=== PATIENT | female | born 1945 | race Caucasian/White ===

== ENCOUNTER 2016-12-30 09:19 | Emergency (ER) | payer OTHER ==
--- NOTE | 2016-12-30 09:47 | PDOC ---
History of Present Illness - General History Source: Patient Exam Limitations: No Limitations - History of Present Illness Initial Comments: 12/30/16 10:02 The patient is a 71 year old female with significant past medical history of hypertension and pulmonary hypertension who presents today with left knee pain since this morning. The patient was shoveling snow with her when he fell onto her and she fell and twisted her left knee. She has pain with walking but no pain at rest. The patient states her knee feels unstable when she is walking. She denies any head trauma or LOC from the fall. No other injuries. She denies any other pain. <Shahla Marcial - Last Filed: 12/30/16 10:01> <Leonela Reed - Last Filed: 01/01/17 07:26> - General Stated Complaint: FALL Time Seen by Provider: 12/30/16 09:43 Past History <Shahla Marcial - Last Filed: 12/30/16 10:01> <Leonela Reed - Last Filed: 01/01/17 07:26> - Past Medical History Allergies/Adverse Reactions: Allergies Allergy/AdvReac Type Severity Reaction Status Date / Time No Known Allergies Allergy Unverified 12/30/16 10:03 Home Medications: Ambulatory Orders Amlodipine Besylate [Norvasc -] 10 mg PO DAILY 12/30/16 Propranolol HCl [Propranolol HCl ER] 120 mg PO DAILY 12/30/16 Tramadol HCl [Ultram -] 25 - 50 mg PO Q6H PRN #20 tablet MDD 4 tabs 12/30/16 Valsartan/Hydrochlorothiazide [Valsartan-Hctz 320-12.5 mg Tab] 1 tab PO DAILY Walker [Ultra-Light Rollator] 1 each ASDIR #1 each 12/30/16 Review of Systems - Review of Systems Able to Perform ROS?: Yes Comments:: 12/30/16 10:02 GENERAL/CONSTITUTIONAL: No fever or chills. No weakness. HEAD, EYES, EARS, NOSE AND THROAT: No change in vision. No ear pain or discharge. No sore throat. GENITOURINARY: No dysuria, frequency, or change in urination. MUSCULOSKELETAL: +Left knee pain. No muscle swelling or pain. No neck or back pain. SKIN: No rash NEUROLOGIC: No headache, vertigo, loss of consciousness, or change in strength/ sensation. ENDOCRINE: No increased thirst. No abnormal weight change. HEMATOLOGIC/LYMPHATIC: No anemia, easy bleeding, or history of blood clots. ALLERGIC/IMMUNOLOGIC: No hives or skin allergy. <Shahla Marcial - Last Filed: 12/30/16 10:01> *Physical Exam - Vital Signs Last Vital Signs Temp Pulse Resp BP Pulse Ox 97.6 F 72 18 122/80 100 12/30/16 09:56 12/30/16 09:56 12/30/16 09:56 12/30/16 09:56 12/30/16 09:56 <Shahla Marcial - Last Filed: 12/30/16 10:01> - Physical Exam Comments: GENERAL: Awake, alert, and fully oriented, in no acute distress HEAD: No signs of trauma EYES: PERRLA, EOMI, sclera anicteric, conjunctiva clear ENT: Auricles normal inspection, hearing grossly normal, nares patent, oropharynx clear without exudates. Moist mucosa EXTREMITIES: L knee with MCL and LCL laxity. No tenderness to palpation. Remainder of extremities with normal range of motion, no edema. No clubbing or cyanosis. No cords, erythema, or tenderness NEUROLOGICAL: Cranial nerves II through XII grossly intact. Normal speech. Motor and sensation intact. Gait not initially tested due to nature of complaint. SKIN: Warm, Dry, normal turgor, no rashes or lesions noted. <Leonela Reed - Last Filed: 01/01/17 07:26> Medical Decision Making - Medical Decision Making 12/30/16 10:56 Ortho paged. 12/30/16 11:49 XR results d/w patient and family at bedside. Awaiting return call from ortho. 12/30/16 12:26 D/w Dr. Richardson. Patient will require surgery, but at this time, will immobilize her and keep her non-weightbearing. Surgery will be delayed to allow for swelling and recovery. I will have PT evaluate her for how she can get around at home. 12/30/16 13:41 Pt has returned from PT, will use walker at home. I will give rx. F/u discussed with case management in terms of arranging transportation. Will see Dr. Castellano in office tomorrow. Stable for AL home. <Leonela Reed - Last Filed: 01/01/17 07:26> *DC/Admit/Observation/Transfer - Attestations Scribe Attestion: 12/30/16 10:02 Documentation prepared by Shahla Marcial, acting as medical csr for Leonela Reed MD. <Shahla Marcial - Last Filed: 12/30/16 10:01> - Discharge Dispostion Admit: No <Leonela Reed - Last Filed: 01/01/17 07:26> Diagnosis at time of Disposition: Tibial plateau fracture, left Qualifiers: Encounter type: initial encounter Fracture type: closed Qualified Code(s): S82.142A - Displaced bicondylar fracture of left tibia, initial encounter for closed fracture - Discharge Dispostion Disposition: HOME Condition at time of disposition: Stable - Prescriptions Prescriptions: Walker [Ultra-Light Rollator] 1 each MC ASDIR #1 each Tramadol HCl [Ultram -] 25 - 50 mg PO Q6H PRN #20 tablet MDD 4 tabs PRN Reason: Severe Pain - Referrals Referrals: Jonathan Castellano MD [Staff Physician] - Anne Go MD [Primary Care Provider] - - Patient Instructions Printed Discharge Instructions: DI for Tibial Plateau Fracture
[2016-12-30 10:02] VITALS: TEMP 97.6; BMI 24.0
[2016-12-30] MEDS ORDERED: IBUPROFEN 400 MG TABLET (FP) PO ONE ×2 (12:44→12:47)
[2016-12-30 14:33] VITALS: BP 124/70; PULSE 74
== END 2016-12-30 14:33 | disposition home or self-care (01) ==
LOC: JER 09:19
DX: S82.142A Displaced bicondylar fracture of left tibia, initial encounter for closed fracture (principal); W00.0XXA Fall on same level due to ice and snow, initial encounter; Y93.H1 Activity, digging, shoveling and raking; Y92.009 Unspecified place in unspecified non-institutional (private) residence as the place of occurrence of the external cause
CPT/HCPCS: 73562-TC-LT; 99282-25

== ENCOUNTER 2017-01-12 05:52 | Day surgery (SDC) | payer OTHER ==
[2017-01-12] MEDS ORDERED: MIDAZOLAM HCL 2 MG/2 ML SINGLE DOSE VIAL ONE (06:45)
[2017-01-12] MEDS ORDERED: DEXAMETHASONE SOD PHOSPHATE/PF 10 MG/ML SDV ONE (06:45)
[2017-01-12] MEDS ORDERED: ROPIVACAINE HCL 0.5% 30ML VIAL ONE ×2 (06:45→07:15)
[2017-01-12 06:52] VITALS: BMI 23.1
[2017-01-12] MEDS ORDERED: BUPIVACAINE HCL/PF 0.5% (5MG/ML) 10 ML VIAL ONE (13:10)
[2017-01-12] MEDS ORDERED: ONDANSETRON 4 MG/2 ML VIAL ONE (13:29)
[2017-01-12] MEDS ORDERED: ceFAZolin SODIUM 1 GM VIAL ONE (13:29)
[2017-01-12] MEDS ORDERED: PROPOFOL 20 ML ONE ×2 (13:33→15:28)
[2017-01-12] MEDS ORDERED: PROMETHAZINE HCL 25 MG/1 ML VIAL IVPUSH PRN (15:16)
[2017-01-12] MEDS ORDERED: ONDANSETRON 4 MG/2 ML VIAL IVPUSH PRN ×2 (15:16)
[2017-01-12] MEDS ORDERED: PROMETHAZINE HCL 25 MG/1 ML VIAL IVPB PRN (15:16)
[2017-01-12] MEDS ORDERED: LACTATED RINGERS SOLUTION 1,000 ML IV SCH (15:30)
[2017-01-12] MEDS ORDERED: HYDROmorphone *PCA* 10MG/50ML DISP.SYRIN PCA SCH (15:30)
[2017-01-12] MEDS ORDERED: EPINEPHrine 1:1,000 1 MG/1 ML - 30ML VIAL (INJECTION) ONE (15:39)
[2017-01-12] MEDS ORDERED: ePHEDrine SULFATE 50 MG/1 ML AMPULE ONE (15:52)
[2017-01-12 17:25] VITALS: TEMP 98
[2017-01-12 18:18] VITALS: PULSE 68
[2017-01-12 18:43] VITALS: BP 115/60
--- NOTE | 2017-01-13 11:14 | OP ---
DATE OF OPERATION: 01/12/2017 PREOPERATIVE DIAGNOSIS: Left knee lateral tibial plateau fracture. POSTOPERATIVE DIAGNOSIS: Left knee lateral tibial plateau fracture. PROCEDURE: Open reduction and internal fixation of left tibial plateau. SURGEON: Jonathan Castellano MD DIRECTOR OF CAMPUS RECREATION: Chapis Mccloud, physician liaison inspection laboratory assistant, whose skilled assistance was necessary for the safe and timely performance of this procedure. Ms. Mccloud was able to help with patient positioning, assist in retraction, fracture reduction, as well as insertion of orthopedic hardware. TOURNIQUET TIME: Two hours. POSTOPERATIVE CONDITION: Stable. BLOOD LOSS: 50 mL. IMPLANTS: Gene proximal tibial locking plate with associated locking and nonlocking screws. INDICATIONS: This is a pleasant, 71-year-old female who suffered a trip and fall, resulting in injury to her knee. She was seen in the office where plain film radiographs were reviewed, demonstrating a depressed lateral tibial plateau fracture. A CT scan was obtained subsequently, as well, demonstrating the same thing, along with significant splits. There was moderate comminution to the joint surface, as well. The treatment options were discussed, including nonoperative management with bracing. This could also result in permanent depression of the joint surface and potentially valgus instability, as well as post-traumatic arthritis, and discomfort. We discussed the option of operative care, including open reduction and internal fixation. This would be to try to restore the joint surface to as close to normal as possible. We reviewed that it is never possible to make it completely smooth like it started out. We reviewed the risks of surgery, including bleeding, infection, neurovascular injury, need for further surgery, including possibly knee replacement surgery should the patient have an unsatisfactory result, postoperative pain and stiffness, nonunion, and malunion. We discussed also the possible onset of arthritis following surgery. We reviewed medical risks, such as heart attack, stroke, DVT , PE, and . We would reduce these with perioperative antibiotic prophylaxis. We discussed the use of perioperative DVT prophylaxis. I addressed all of the patient's questions and the family voiced understanding. She elected to proceed and consent was signed. PROCEDURE: The patient was brought to the operating room, following administration of a regional block in the preoperative holding area. The left lower extremity was then prepped and draped in the usual sterile fashion, following the administration of spinal anesthesia, as well. The patient was given a preoperative dose of antibiotics and the usual timeout procedure was performed. At this point, an incision was planned out over the proximal-lateral aspect of the tibia. It was curved posteriorly in the more proximal portion to gain access to the proximal fracture fragment. The limb was now exsanguinated and the tourniquet was inflated to 250 mmHg. The incision was now carried down through skin to the subcutaneous tissue. Blunt dissection was used to expose the facia over the anterior compartment. The fascia was now split in line with its fibers over the anterior compartment. A periosteal elevator was now slid along the lateral aspect of the tibia to expose the cortex. The fracture did have some callus on it. This was debrided using a combination of a Herrick elevator as well as a curette. The fracture was noted to extend all the way up to the lateral border of the patellar tendon. Utilizing the large anterolateral fracture fragment, this was now elevated in a lateral direction to gain access to the interior of the tibia. Here, the large main fragment of the joint surface which was depressed was identified. Utilizing a tamp, it was tamped up back to the more anatomic position. Some smaller fracture fragments had to be removed which were not large enough to be fixed. The cancellous bone graft was now used and this was tamped up under the fracture fragments and used to support the joint surface in a reduced position. The fragment was now reduced back into place and fluoroscopy was used to examine the fracture reduction in 2 planes. Both views demonstrated satisfactory reduction of the joint surface. The plate was now applied to the lateral aspect of the tibia. It was held in place using K-wires. Initially, in the metaphyseal region, a 4.0 cancellous screw was first drilled, measured, and then inserted in order to provide compression across the fracture site. Upon inserting this screw, good compression was achieved across the fracture site as visualized anteriorly. Plate placement and fracture reduction were now confirmed fluoroscopically and were satisfactory. The plate was now fixed distally using a 3.5 cortical screw inserted in standard fashion. Attention was now turned proximally. Here, the rafter screws were drilled using the locking guide and then inserted in standard fashion. An additional metaphyseal locking screw was inserted, as well. The kickstand and other distal nonlocking screw were inserted to finish the fixation process. At this point, hardware placement was verified both visually and fluoroscopically, as well as the fracture reduction, and both were satisfactory. Given that there was still a void in the bone, it was decided to use HydroSet calcium paste to augment the bone grafting. This was injected through a comminuted portion anteroinferiorly. On filling the defect, it was noted that some of the cement started to escape into the joint. Cement was now allowed to harden. The wound at this point was copiously irrigated. The fascia was approximated loosely using 0 Vicryl. The subcutaneous tissue was approximated using 2-0 Vicryl. The skin was then closed using a running 4-0 nylon. The tourniquet was let down. At this point, the knee was passed over the side of the table and flexed to 90 degrees. A standard anterolateral arthroscopic portal was now established using an 11-blade. The arthroscope was then passed into the knee. A medial portal was now established, as well. Utilizing a 4.5 shaver, the excess bone graft which had been in the knee was now debrided. Inspection of the lateral compartment demonstrated that the joint surface was well approximated. The meniscus was seen to be complexly torn throughout its body and posterior horn which appeared chronic in nature, given the frayed and bulbous shape of the meniscus. This was gently debrided, as well. The excess fluid was now withdrawn from the knee. The portal sites were sutured using 4-0 nylon, as well. The patient was placed into sterile dressings. She was placed into a knee immobilizer. She was transferred to the recovery room in stable condition. Morris RIVERA/[id number] MTDD
== END 2017-01-12 18:35 | disposition home or self-care (01) ==
LOC: FASU 05:52
PROVIDERS: ATTEND Orthopaedic Surgery Sports Medicine
PROC: 0QSH04Z Reposition Left Tibia with Internal Fixation Device, Open Approach (ICD-10-PCS; principal; 2017-01-12 13:46)
DX: S82.122A Displaced fracture of lateral condyle of left tibia, initial encounter for closed fracture (principal); X58.XXXA Exposure to other specified factors, initial encounter; Y93.9 Activity, unspecified; Y92.9 Unspecified place or not applicable
CPT/HCPCS: 73590-TC-LT; 94760

== ENCOUNTER 2018-11-03 12:38 | Emergency (ER) | payer OTHER ==
[2018-11-03 13:11] VITALS: BP 136/62; PULSE 67; TEMP 98.3; BMI 24.7
[2018-11-03] MEDS ORDERED: AMPICILLIN NA/SULBACTAM NA 1.5 GM VIAL ONE (15:27)
--- NOTE | 2018-11-03 16:01 | CONSULT ---
Consult Consult Specialty:: Hand and Microsurgery - Alcohol/Substance Use Hx Alcohol Use: No - Smoking History Smoking history: Never smoked Have you smoked in the past 12 months: No Home Medications - Allergies Allergies/Adverse Reactions: Allergies Allergy/AdvReac Type Severity Reaction Status Date / Time No Known Allergies Allergy Unverified 01/12/17 06:58 - Home Medications Home Medications: Ambulatory Orders Amlodipine Besylate [Norvasc -] 10 mg PO DAILY 12/30/16 Propranolol HCl [Propranolol HCl ER] 120 mg PO DAILY 12/30/16 Valsartan/Hydrochlorothiazide [Valsartan-Hctz 320-12.5 mg Tab] 1 tab PO DAILY traMADol HCL [Ultram -] 25 - 50 mg PO Q6H PRN #20 tablet MDD 4 tabs 12/30/16 Aspirin [Ecotrin] 81 mg PO BID 01/08/17 Amoxicillin/Potassium Clav [Augmentin 875-125 Tablet] 1 each PO BID 7 Days #14 tablet 11/03/18 Physical Exam Vital Signs: Vital Signs Temperature 98.3 F 11/03/18 13:08 Pulse Rate 67 11/03/18 13:08 Respiratory Rate 16 11/03/18 13:08 Blood Pressure 136/62 11/03/18 13:08 O2 Sat by Pulse Oximetry (%) 98 11/03/18 13:08 Problem List - Problems (1) Dog bite of left hand without complication Assessment/Plan: LEFT HAND DORSAL BITE UNASYN 1.5 OR 3GRAMS IV ORAL AUGMENTIN x7 DAYS F/U IN WOUND CARE IN 2 WEEKS Code(s): S61.452A - OPEN BITE OF LEFT HAND, INITIAL ENCOUNTER; W54.0XXA - BITTEN BY DOG, INITIAL ENCOUNTER Qualifiers: Encounter type: initial encounter Qualified Code(s): S61.452A - Open bite of left hand, initial encounter; W54.0XXA - Bitten by dog, initial encounter (2) Laceration of left hand without foreign body Code(s): S61.412A - LACERATION WITHOUT FOREIGN BODY OF LEFT HAND, INIT ENCNTR Qualifiers: Encounter type: initial encounter Qualified Code(s): S61.412A - Laceration without foreign body of left hand, initial encounter (3) Tibial plateau fracture, left Code(s): S82.142A - DISPLACED BICONDYLAR FRACTURE OF LEFT TIBIA, INIT Qualifiers: Encounter type: initial encounter Fracture type: closed Qualified Code(s) : S82.142A - Displaced bicondylar fracture of left tibia, initial encounter for closed fracture
--- NOTE | 2018-11-03 16:04 | PDOC ---
History of Present Illness - General Chief Complaint: Bite Stated Complaint: INJURY/BITE,LT HAND Time Seen by Provider: 11/03/18 14:20 History Source: Patient Exam Limitations: Clinical Condition - History of Present Illness Initial Comments: 11/03/18 16:07 Patient with h/o HTN present for evaluation s/p being bitten by daughter's labrador dog when trying to close the fence gate and dog bit her . Patient does not recall last tetanus vaccine. Patient report skin avulsion to back of left hand from the bite. Patient report able to move fingers and hand . Patient denies any neuro deficit to hand or restricted hand movement. Patient report dog is usually not aggresive and does not know why dog bit her hand. Report dog is fully immunized Timing/Duration: 1-3 hours Past History - Past Medical History Allergies/Adverse Reactions: Allergies Allergy/AdvReac Type Severity Reaction Status Date / Time No Known Allergies Allergy Unverified 01/12/17 06:58 Home Medications: Ambulatory Orders Amlodipine Besylate [Norvasc -] 10 mg PO DAILY 12/30/16 Propranolol HCl [Propranolol HCl ER] 120 mg PO DAILY 12/30/16 Valsartan/Hydrochlorothiazide [Valsartan-Hctz 320-12.5 mg Tab] 1 tab PO DAILY traMADol HCL [Ultram -] 25 - 50 mg PO Q6H PRN #20 tablet MDD 4 tabs 12/30/16 Aspirin [Ecotrin] 81 mg PO BID 01/08/17 Amoxicillin/Potassium Clav [Augmentin 875-125 Tablet] 1 each PO BID 7 Days #14 tablet 11/03/18 Naproxen 500 mg PO BID PRN #20 tablet 11/03/18 Anemia: No Asthma: No Cancer: Yes Cardiac Disorders: Yes (CAD) CVA: No COPD: No CHF: No Dementia: No Diabetes: No GI Disorders: No Disorders: No HTN: Yes (PULMONARY HTN) Hypercholesterolemia: Yes Liver Disease: No Seizures: No Thyroid Disease: No - Surgical History Abdominal Surgery: No Appendectomy: No Cardiac Surgery: No Cholecystectomy: No Lung Surgery: No Neurologic Surgery: No Orthopedic Surgery: No - Immunization History Immunization Up to Date: No - Suicide/Smoking/Psychosocial Hx Smoking History: Never smoked Have you smoked in the past 12 months: No Information on smoking cessation initiated: No Hx Alcohol Use: No Drug/Substance Use Hx: No Substance Use Type: None Hx Substance Use Treatment: No Review of Systems - Review of Systems Able to Perform ROS?: Yes Is the patient limited Romansh proficient: No Constitutional: No: Fever, Weakness Respiratory: No: Symptoms reported Cardiac (ROS): No: Symptoms Reported ABD/GI: No: Symptoms Reported Musculoskeletal: Yes: See HPI, Muscle Pain (pain to back of left hand). No: Muscle Weakness Integumentary: Yes: Other (complete skin avulsion to back of left hand) Neurological: No: Numbness, Paresthesia, Tingling, Weakness All Other Systems: Reviewed and Negative *Physical Exam - Vital Signs Last Vital Signs Temp Pulse Resp BP Pulse Ox 98.3 F 67 16 136/62 98 11/03/18 13:08 11/03/18 13:08 11/03/18 13:08 11/03/18 13:08 11/03/18 13:08 - Physical Exam Comments: 11/03/18 16:14 GENERAL: Well developed, well nourished. Awake and alert. No acute distress. CARDIOVASCULAR: Regular rate and rhythm. No murmurs, rubs, or gallops. PULMONARY: No evidence of respiratory distress. Lungs clear to auscultation bilaterally. No wheezing, rales or rhonchi. ABDOMINAL: Soft. Non-tender. Non-distended. No rebound or guarding. No organomegaly. Normoactive bowel sounds MUSCULOSKELETAL : Moderate tenderness to dorsum of left hand with complete 5 centimeters skin evulsion laceration to dorsal of left hand. Free range of motion of left hand or fingers. 5 out of 5 muscle strength to fingers of left hand. SKIN: 5 cm complete skin avulsion laceration in a stellate fashion to dorsum of left hand with exposed subcutaneous tissues. Minimal bleeding to laceration site. NEUROLOGICAL: Alert, awake, appropriate. No motor deficits in the lower extremities. PSYCHIATRIC: Cooperative. Good eye contact. Appropriate mood and affect. 11/03/18 16:19 General Appearance: Yes: Nourished, Appropriately Dressed. No: Apparent Distress Moderate Sedation - Procedure Monitoring Vital Signs: Procedure Monitoring Vital Signs Temperature 98.3 F 11/03/18 13:08 Pulse Rate 67 11/03/18 13:08 Respiratory Rate 16 11/03/18 13:08 Blood Pressure 136/62 11/03/18 13:08 O2 Sat by Pulse Oximetry (%) 98 11/03/18 13:08 ED Treatment Course - RADIOLOGY Radiology Studies Ordered: Category Date Time Status HAND- LEFT [RAD] Stat Radiology 11/03/18 15:11 Taken Medical Decision Making - Medical Decision Making 11/03/18 16:17 Patient with h/o HTN present for evaluation s/p being bitten by daughter's labrador dog when trying to close the fence gate and dog bit her . Patient does not recall last tetanus vaccine. Patient report skin avulsion to back of left hand from the bite. Patient report able to move fingers and hand. Exam significant for 5 cm complete skin avulsion laceration in a stellate fashion to dorsum of left hand with exposed subcutaneous tissues. Minimal bleeding to laceration site. Moderate tenderness to dorsum of left hand to dorsal of left hand. Free range of motion of left hand or fingers 11/03/18 16:18 Wound copiously irrigated with normal saline and 10 mL syringe. Wound cleaned with bacitracin. Consult place with hand surgeon Dr. Chavez who came in to see patient and closed wound with suture. Patient to follow-up in 2 weeks in wound care clinic as per hand surgeon for follow-up. X-ray of left hand shows no foreign body to laceration site. Patient given Unasyn IV antibiotics 1.5 g as instructed by hand surgeon. Patient be discharged home on a week dose of Augmentin antibiotics with follow-up in 2 weeks. tdap vaccine could not be ordered due to technical problem with computer system. Spoke to pharmacist who instruct to give vaccine by verbal order from me to nurse and document it. Verbal order given to nurse to give Boostrix 0.5 mg IM. 11/03/18 16:42 *DC/Admit/Observation/Transfer Diagnosis at time of Disposition: Encounter for immunization Dog bite of left hand without complication Qualifiers: Encounter type: initial encounter Qualified Code(s): S61.452A - Open bite of left hand, initial encounter Laceration of left hand without foreign body Qualifiers: Encounter type: initial encounter Qualified Code(s): S61.412A - Laceration without foreign body of left hand, initial encounter - Discharge Dispostion Disposition: HOME Condition at time of disposition: Improved Decision to Admit order: No - Prescriptions Prescriptions: Amoxicillin/Potassium Clav [Augmentin 875-125 Tablet] 1 each PO BID 7 Days #14 tablet Naproxen 500 mg PO BID PRN #20 tablet PRN Reason: pain - Referrals Referrals: Theo Chavez MD [Staff Physician] - - Patient Instructions Printed Discharge Instructions: How to Care for a Domestic Animal Bite, DI for Animal Bites, DI for Dog Bite Additional Instructions: Take antibiotics as prescribed and completed. Take Motrin as needed for pain. Follow-up with hand surgeon in 2 weeks as discussed for reassessment. Call Dr. Chavez office to make follow-up appointment in 2 weeks - Post Discharge Activity
[2018-11-03] MEDS ORDERED: DIPHTH,PERTUSS(ACELL),TET 0.5 ML DISP.SYRIN IM ONE (16:13)
[2018-11-03] MEDS: AMPICILLIN NA/SULBACTAM NA 1.5 GM in SODIUM CHLORIDE 100 ML IVPB ONE ×2 (16:17→16:21)
--- NOTE | 2018-11-03 17:08 | PROC ---
Incision and Drainage Indication/Location: dog bite left hand dorsal stellate lacertion Risks and Benefits Explained: Yes Consent on Chart: Yes Betadine cleansed: Yes Anesthesia: 1% Lidocaine Irrigated with Normal Saline: Yes Iodinated Packin in Sterile Dressing Applied: Yes - Remarks Remarks: Approximation of left hand dorsal stellate laceration. 4-0 nylon, around the peripheray Xeroform and gauze applied with coban
== END 2018-11-03 16:49 | disposition home or self-care (01) ==
LOC: JERFT 12:38
PROC: 0JQK0ZZ Repair Left Hand Subcutaneous Tissue and Fascia, Open Approach (ICD-10-PCS; principal; 2018-11-03)
PROC: 3E0234Z Introduction of Serum, Toxoid and Vaccine into Muscle, Percutaneous Approach (ICD-10-PCS; 2018-11-03)
PROC: 3E03329 Introduction of Other Anti-infective into Peripheral Vein, Percutaneous Approach (ICD-10-PCS; 2018-11-03)
DX: S61.452A Open bite of left hand, initial encounter (principal); S61.412A Laceration without foreign body of left hand, initial encounter; W54.0XXA Bitten by dog, initial encounter; Y93.89 Activity, other specified; Y92.018 Other place in single-family (private) house as the place of occurrence of the external cause; Y99.8 Other external cause status
CPT/HCPCS: 73130-TC-LT-FY; 99281-25

== ENCOUNTER 2023-04-29 11:00 | Emergency (ER) | payer OTHER, MEDICARE ==
[2023-04-29 11:24] VITALS: BP 160/97; PULSE 83; RESP 18; TEMP 97.9; BMI 28.0
[2023-04-29] MEDS ORDERED: ACETAMINOPHEN 325 MG TABLET (FP) PO ONE (11:25)
[2023-04-29] MEDS ORDERED: LIDOCAINE 5% TOPICAL PATCH TP ONE (11:25)
[2023-04-29] MEDS ORDERED: ACETAMINOPHEN 325 MG TABLET (FP) ONE (11:30)
[2023-04-29] MEDS ORDERED: LIDOCAINE 5% TOPICAL PATCH ONE (11:31)
== END 2023-04-29 13:30 | disposition home or self-care (01) ==
LOC: FER 11:00
DX: M54.50 Low back pain, unspecified (principal); W01.0XXA Fall on same level from slipping, tripping and stumbling without subsequent striking against object, initial encounter; X50.1XXA Overexertion from prolonged static or awkward postures, initial encounter; Y93.H2 Activity, gardening and landscaping
CPT/HCPCS: 72131-TC; 99284-25

== ENCOUNTER 2023-12-27 09:51 | Inpatient (IN) | payer OTHER, MEDICARE ==
[2023-12-27] MEDS ORDERED: ACETAMINOPHEN 500 MG TABLET (FP) ONE (12:26)
[2023-12-27] MEDS: ACETAMINOPHEN 500 MG TABLET (FP) PO ONE (13:04)
[2023-12-27 13:24] LABS: BASO % 0.3 % (0-2.0); EOS % 0.4 % (0-4.5); HEMATOCRIT 36.1 % (32.4-45.2); HEMOGLOBIN 12.6 GM/dL (10.7-15.3); LYMPH % 8.1 % (8-40); MCH 31.4 pg (25.7-33.7); MCHC 34.8 g/dl (32.0-36.0); MEAN CELL VOLUME 90.2 fl (80-96); MEAN PLT VOLUME 8.8 fl (7.5-11.1); MONO % 4.7 % (3.8-10.2); NEUT % 86.5 % (42.8-82.8); PLATELET COUNT 228 10^3/uL (134-434); RDW 13.9 % (11.6-15.6); WHITE BLOOD COUNT 10.9 K/mm3 (4.0-10.0)
[2023-12-27 13:37] LABS: INR 1.03 (0.83-1.09)
[2023-12-27 13:39] LABS: ACTIVATED PTT 24.9 SECONDS (25.2-36.5)
[2023-12-27 13:47] LABS: POTASSIUM 3.1 mmol/L (3.5-5.1)
[2023-12-27 13:49] LABS: CALCIUM 9.1 mg/dL (8.5-10.1)
[2023-12-27 13:50] LABS: ALBUMIN 3.2 g/dl (3.4-5.0); BLOOD UREA NITROGEN 21.2 mg/dL (7-18)
[2023-12-27 13:53] LABS: CREATININE 1.1 mg/dL (0.55-1.3)
[2023-12-27 13:55] LABS: BILIRUBIN,TOTAL 1.2 mg/dL (0.2-1); TOT PROT 6.1 g/dl (6.4-8.2)
[2023-12-27] MEDS ORDERED: POTASSIUM CHLORIDE ORAL LIQUID 20 MEQ/15 ML ONE (14:06)
[2023-12-27] MEDS: POTASSIUM CHLORIDE ORAL LIQUID 20 MEQ/15 ML PO ONE (14:10)
[2023-12-27] MEDS ORDERED: ASPIRIN 81 MG CHEWABLE TABLETS ONE (15:28)
[2023-12-27] MEDS: ASPIRIN 81 MG CHEWABLE TABLETS PO ONE (15:30)
[2023-12-27 19:22] LABS: EPI CELLS 11 /uL (0-25.1); HYALINE CASTS 0 /uL (0-3.1); PH,URINE 5.5 (5.0-8.0); URINE APPEARANCE Error; URINE BILIRUBIN NEGATIVE (NEGATIVE); URINE COLOR DK YELLOW; URINE GLUCOSE (UA) NEGATIVE (NEGATIVE); URINE KETONE TRACE (NEGATIVE); URINE LEUK ESTERASE 2+ (NEGATIVE); URINE NITRITE POSITIVE (NEGATIVE); URINE PROTEIN TRACE (NEGATIVE); URINE RBC 16 /uL (0-23.9); URINE WBC 671 /uL (0-25.8)
[2023-12-27] MEDS ORDERED: traMADol HCL 50 MG TABLET PO PRN (19:37)
[2023-12-27] MEDS ORDERED: PATIENT'S OWN MEDICATION (NON-FORMULARY) (Pravastatin Sodium 40 MG Tablet) PO SCH (19:45)
[2023-12-27 20:34] VITALS: BMI 21.2
[2023-12-27] MEDS: SODIUM CHLORIDE 500 ML IV STA (21:15)
[2023-12-27] MEDS: POLYETHYLENE GLYCOL (HEALTHYLAX) 3350 17 GM PACKET PO SCH (21:46)
[2023-12-27] MEDS: ATORVASTATIN CA 10 MG TABLET (FP) PO SCH (21:46)
[2023-12-27] MEDS: SODIUM CHLORIDE 1,000 ML IV SCH (21:47)
[2023-12-28] MEDS: CEFTRIAXONE 1 GM in DEXTROSE 5%-WATER - 50 ML IVPB ONE (01:56)
[2023-12-28 08:07] LABS: HEMATOCRIT 34.5 % (32.4-45.2); HEMOGLOBIN 11.7 GM/dL (10.7-15.3); MCHC 33.8 g/dl (32.0-36.0); MEAN CELL VOLUME 91.6 fl (80-96); MEAN PLT VOLUME 8.9 fl (7.5-11.1); PLATELET COUNT 201 10^3/uL (134-434); RBC 3.76 M/mm3 (3.60-5.2); WHITE BLOOD COUNT 8.8 K/mm3 (4.0-10.0)
[2023-12-28 08:32] LABS: POTASSIUM 3.8 mmol/L (3.5-5.1)
[2023-12-28 08:38] LABS: CALCIUM 8.7 mg/dL (8.5-10.1)
[2023-12-28 08:39] LABS: BLOOD UREA NITROGEN 23.4 mg/dL (7-18); MAGNESIUM 1.9 mg/dL (1.8-2.4)
[2023-12-28 08:41] LABS: CREATININE 0.9 mg/dL (0.55-1.3)
[2023-12-28 08:42] LABS: PHOSPHOROUS 2.5 mg/dL (2.5-4.9)
[2023-12-28 08:43] LABS: BILIRUBIN,TOTAL 0.8 mg/dL (0.2-1); TOT PROT 5.9 g/dl (6.4-8.2)
[2023-12-28] MEDS: ASPIRIN COATED 81 MG TABLET.EC PO SCH (09:37)
[2023-12-28] MEDS: SODIUM CHLORIDE 500 ML IV STA (09:37)
[2023-12-28] MEDS ORDERED: CEFTRIAXONE 1 GM in DEXTROSE 5%-WATER - 50 ML IVPB SCH (22:00)
[2023-12-28] MEDS: SODIUM CHLORIDE 1,000 ML IV SCH (22:28)
[2023-12-29 07:39] LABS: HEMATOCRIT 34.6 % (32.4-45.2); HEMOGLOBIN 11.7 GM/dL (10.7-15.3); MCH 30.5 pg (25.7-33.7); MCHC 33.7 g/dl (32.0-36.0); MEAN CELL VOLUME 90.6 fl (80-96); PLATELET COUNT 192 10^3/uL (134-434); RBC 3.82 M/mm3 (3.60-5.2); RDW 13.7 % (11.6-15.6)
[2023-12-29 07:48] LABS: CHLORIDE 106 mmol/L (98-107); SODIUM 140 mmol/L (136-145)
[2023-12-29 08:13] LABS: CALCIUM 8.7 mg/dL (8.5-10.1)
[2023-12-29 08:14] LABS: ALBUMIN 2.9 g/dl (3.4-5.0); BLOOD UREA NITROGEN 13.2 mg/dL (7-18); CO2 26 mmol/L (21-32); GLUCOSE,RANDOM 141 mg/dL (74-106); MAGNESIUM 1.6 mg/dL (1.8-2.4)
[2023-12-29 08:16] LABS: CREATININE 0.6 mg/dL (0.55-1.3); PHOSPHOROUS 2.3 mg/dL (2.5-4.9); SGOT/AST 28 U/L (15-37)
[2023-12-29 08:18] LABS: SGPT/ALT 24 U/L (13-61)
[2023-12-29 08:19] LABS: TOT PROT 5.6 g/dl (6.4-8.2)
[2023-12-29 08:20] LABS: ALK PHOS 245 U/L (45-117)
[2023-12-29 08:27] LABS: ANION GAP 8 mmol/L (4-13); POTASSIUM 2.9 mmol/L (3.5-5.1)
[2023-12-29] MEDS: CEFTRIAXONE 1 GM in DEXTROSE 5%-WATER - 50 ML IVPB SCH (09:22)
[2023-12-29] MEDS: ENOXAPARIN NA (PORCINE) 40 MG/0.4 ML DISP.SYRIN SQ SCH (09:22)
[2023-12-29] MEDS: POTASSIUM CHLORIDE ORAL LIQUID 20 MEQ/15 ML PO ONE (12:56)
[2023-12-29] MEDS: MAGNESIUM SULFATE IN WATER 2 GM/50 ML IVPB IVPB ONE (12:57)
[2023-12-29] MEDS: POTASSIUM PHOSPHATE 30 MM in SODIUM CHLORIDE 500 ML IVPB ONE (15:35)
[2023-12-29] MEDS ORDERED: PIPERACILLIN/TAZOB 3.375 GM 3.375 GM in DEXTROSE 5%-WATER - 50 ML IVPB SCH (18:00)
[2023-12-29] MEDS: PIPERACILLIN/TAZOB 3.375 GM 3.375 GM in DEXTROSE 5%-WATER - 50 ML IVPB SCH (18:23)
[2023-12-29] MEDS: ACETAMINOPHEN 325 MG TABLET (FP) PO PRN (18:42)
[2023-12-30 07:21] LABS: HEMATOCRIT 31.9 % (32.4-45.2); HEMOGLOBIN 11.1 GM/dL (10.7-15.3); MCH 31.4 pg (25.7-33.7); MEAN CELL VOLUME 89.8 fl (80-96); PLATELET COUNT 195 10^3/uL (134-434); RBC 3.55 M/mm3 (3.60-5.2)
[2023-12-30 07:40] LABS: POTASSIUM 3.8 mmol/L (3.5-5.1)
[2023-12-30 07:45] LABS: ALBUMIN 2.6 g/dl (3.4-5.0); BLOOD UREA NITROGEN 10.7 mg/dL (7-18); CALCIUM 8.1 mg/dL (8.5-10.1)
[2023-12-30 07:47] LABS: CREATININE 0.7 mg/dL (0.55-1.3); PHOSPHOROUS 3.5 mg/dL (2.5-4.9)
[2023-12-30 07:50] LABS: BILIRUBIN,TOTAL 0.8 mg/dL (0.2-1); TOT PROT 5.3 g/dl (6.4-8.2)
[2023-12-30] MEDS: PIPERACILLIN/TAZOB 3.375 GM 3.375 GM in DEXTROSE 5%-WATER - 50 ML IVPB SCH ×4 (16:25→22:33)
[2023-12-30] MEDS: LACTULOSE 20 GM/30 ML UDC (FOR ORAL USE ONLY) PO ONE ×2 (17:14)
[2023-12-31 07:12] LABS: HEMATOCRIT 36.1 % (32.4-45.2); MCH 30.2 pg (25.7-33.7); MCHC 33.1 g/dl (32.0-36.0); MEAN CELL VOLUME 91.2 fl (80-96); MEAN PLT VOLUME 9.2 fl (7.5-11.1); PLATELET COUNT 220 10^3/uL (134-434); RBC 3.97 M/mm3 (3.60-5.2); WHITE BLOOD COUNT 8.3 K/mm3 (4.0-10.0)
[2023-12-31 07:26] LABS: POTASSIUM 3.5 mmol/L (3.5-5.1)
[2023-12-31 07:29] LABS: CALCIUM 8.6 mg/dL (8.5-10.1)
[2023-12-31 07:30] LABS: ALBUMIN 2.8 g/dl (3.4-5.0); BLOOD UREA NITROGEN 12.2 mg/dL (7-18)
[2023-12-31 07:34] LABS: CREATININE 0.7 mg/dL (0.55-1.3); PHOSPHOROUS 2.7 mg/dL (2.5-4.9)
[2023-12-31 07:35] LABS: BILIRUBIN,TOTAL 0.9 mg/dL (0.2-1); TOT PROT 5.8 g/dl (6.4-8.2)
[2023-12-31] MEDS ORDERED: HEPARIN NA (PORCINE) 5,000 UNITS/ML 1ML VIAL IVPUSH PRN (18:23)
[2023-12-31] MEDS: BISACODYL 5 MG TABLET.DR (FP) PO ONE (20:16)
[2023-12-31] MEDS: SODIUM CHLORIDE 1,000 ML IV SCH (20:33)
[2023-12-31] MEDS: HEPARIN - 25,000 UNIT in SODIUM CHLORIDE 495 ML IV SCH (22:03)
[2023-12-31] MEDS: HEPARIN NA (PORCINE) 5,000 UNITS/ML 1ML VIAL IVPUSH ONE (22:03)
[2024-01-01 08:03] LABS: HEMATOCRIT 34.1 % (32.4-45.2); HEMOGLOBIN 11.8 GM/dL (10.7-15.3); MCHC 34.7 g/dl (32.0-36.0); MEAN CELL VOLUME 89.5 fl (80-96); MEAN PLT VOLUME 9.1 fl (7.5-11.1); PLATELET COUNT 250 10^3/uL (134-434); RBC 3.81 M/mm3 (3.60-5.2); WHITE BLOOD COUNT 9.4 K/mm3 (4.0-10.0)
[2024-01-01 08:24] LABS: POTASSIUM 3.7 mmol/L (3.5-5.1)
[2024-01-01 08:30] LABS: CALCIUM 8.4 mg/dL (8.5-10.1)
[2024-01-01 08:31] LABS: ALBUMIN 2.6 g/dl (3.4-5.0); BLOOD UREA NITROGEN 9.9 mg/dL (7-18); MAGNESIUM 1.8 mg/dL (1.8-2.4)
[2024-01-01 08:33] LABS: CREATININE 0.7 mg/dL (0.55-1.3); PHOSPHOROUS 2.5 mg/dL (2.5-4.9)
[2024-01-01 08:34] LABS: BILIRUBIN,TOTAL 0.9 mg/dL (0.2-1); TOT PROT 5.5 g/dl (6.4-8.2)
[2024-01-01] MEDS: HEPARIN NA (PORCINE) 5,000 UNITS/ML 1ML VIAL IVPUSH PRN (09:16)
[2024-01-01] MEDS ORDERED: BISACODYL 5 MG TABLET.DR (FP) PO PRN (14:27)
[2024-01-01] MEDS ORDERED: SENNOSIDES/DOCUSATE COMBO (SENNA PLUS) TABLET (UD) PO PRN (14:28)
[2024-01-01] MEDS: LACTULOSE 20 GM/30 ML UDC (FOR ORAL USE ONLY) PO ONE (14:56)
[2024-01-01] MEDS: BISACODYL 5 MG TABLET.DR (FP) PO ONE (14:56)
[2024-01-01] MEDS: POLYETHYLENE GLYCOL (HEALTHYLAX) 3350 17 GM PACKET PO SCH (21:58)
[2024-01-02 07:32] LABS: POTASSIUM 3.7 mmol/L (3.5-5.1)
[2024-01-02 07:45] LABS: CALCIUM 8.8 mg/dL (8.5-10.1)
[2024-01-02 07:46] LABS: ALBUMIN 2.8 g/dl (3.4-5.0); BLOOD UREA NITROGEN 9.4 mg/dL (7-18); MAGNESIUM 1.9 mg/dL (1.8-2.4)
[2024-01-02 07:48] LABS: PHOSPHOROUS 2.1 mg/dL (2.5-4.9)
[2024-01-02 07:49] LABS: CREATININE 0.7 mg/dL (0.55-1.3)
[2024-01-02 07:50] LABS: BILIRUBIN,TOTAL 0.8 mg/dL (0.2-1); TOT PROT 5.8 g/dl (6.4-8.2)
[2024-01-02 08:23] LABS: HEMATOCRIT 34.8 % (32.4-45.2); HEMOGLOBIN 11.9 GM/dL (10.7-15.3); MCH 31.1 pg (25.7-33.7); MCHC 34.2 g/dl (32.0-36.0); MEAN CELL VOLUME 90.9 fl (80-96); MEAN PLT VOLUME 9.4 fl (7.5-11.1); PLATELET COUNT 276 10^3/uL (134-434); RBC 3.83 M/mm3 (3.60-5.2)
[2024-01-02] MEDS ORDERED: APIXABAN 5 MG TABLET PO SCH (22:00)
[2024-01-03 08:19] LABS: ACTIVATED PTT 73.3 SECONDS (25.2-36.5)
[2024-01-03 08:37] LABS: BASO % 0.8 % (0-2.0); HEMATOCRIT 29.8 % (32.4-45.2); HEMOGLOBIN 10.4 GM/dL (10.7-15.3); LYMPH % 13.2 % (8-40); MCH 31.2 pg (25.7-33.7); MCHC 34.8 g/dl (32.0-36.0); MEAN CELL VOLUME 89.7 fl (80-96); MEAN PLT VOLUME 9.2 fl (7.5-11.1); MONO % 5.9 % (3.8-10.2); NEUT % 78.1 % (42.8-82.8); PLATELET COUNT 274 10^3/uL (134-434); RBC 3.33 M/mm3 (3.60-5.2); WHITE BLOOD COUNT 7.4 K/mm3 (4.0-10.0)
[2024-01-03 09:13] LABS: ALBUMIN 2.5 g/dl (3.4-5.0); BILIRUBIN,TOTAL 0.6 mg/dL (0.2-1); BLOOD UREA NITROGEN 6.1 mg/dL (7-18); CALCIUM 8.3 mg/dL (8.5-10.1); CREATININE 0.5 mg/dL (0.55-1.3); MAGNESIUM 1.9 mg/dL (1.8-2.4); PHOSPHOROUS 2.3 mg/dL (2.5-4.9); POTASSIUM 3.1 mmol/L (3.5-5.1); TOT PROT 5.1 g/dl (6.4-8.2)
[2024-01-03 09:46] LABS: INR 1.05 (0.83-1.09); PROTHROMBIN TIME (PATIENT) 12.2 SEC (9.7-13.0)
[2024-01-03] MEDS: POTASSIUM CHLORIDE ORAL LIQUID 20 MEQ/15 ML PO ONE (13:35)
[2024-01-03] MEDS ORDERED: MIDAZOLAM HCL 2 MG/2 ML SINGLE DOSE VIAL ONE (14:08)
[2024-01-03] MEDS: SODIUM CHLORIDE 500 ML IV SCH (14:45)
[2024-01-03] MEDS: MIDAZOLAM HCL 2 MG/2 ML SINGLE DOSE VIAL IVPUSH ONE (14:52)
[2024-01-03] MEDS: FENTANYL CITRATE/PF 50 MCG/ML VIAL IVPUSH ONE (14:52)
[2024-01-03] MEDS: APIXABAN 5 MG TABLET PO SCH (21:23)
[2024-01-03] MEDS ORDERED: APIXABAN 2.5 MG TABLET PO SCH (22:00)
[2024-01-04 07:06] LABS: HEMATOCRIT 32.2 % (32.4-45.2); HEMOGLOBIN 10.8 GM/dL (10.7-15.3); MCH 30.5 pg (25.7-33.7); MCHC 33.5 g/dl (32.0-36.0); MEAN CELL VOLUME 91.2 fl (80-96); MEAN PLT VOLUME 8.7 fl (7.5-11.1); PLATELET COUNT 293 10^3/uL (134-434); RBC 3.53 M/mm3 (3.60-5.2); WHITE BLOOD COUNT 7.5 K/mm3 (4.0-10.0)
[2024-01-04 07:32] LABS: POTASSIUM 3.9 mmol/L (3.5-5.1)
[2024-01-04 07:36] LABS: ALBUMIN 2.7 g/dl (3.4-5.0); BLOOD UREA NITROGEN 7.3 mg/dL (7-18); CALCIUM 9.2 mg/dL (8.5-10.1); MAGNESIUM 2.2 mg/dL (1.8-2.4)
[2024-01-04 07:39] LABS: CREATININE 0.5 mg/dL (0.55-1.3); PHOSPHOROUS 2.6 mg/dL (2.5-4.9)
[2024-01-04 07:40] LABS: TOT PROT 5.6 g/dl (6.4-8.2)
[2024-01-04 07:41] LABS: BILIRUBIN,TOTAL 0.8 mg/dL (0.2-1)
[2024-01-04] MEDS: MAGNESIUM HYDROX 2400MG/30ML ORAL SUSPENSION 30 ML CUP PO ONE (09:33)
[2024-01-04] MEDS: TAMSULOSIN HCL 0.4 MG CAP PO ONE (12:30)
[2024-01-04] MEDS: SENNOSIDES/DOCUSATE COMBO (SENNA PLUS) TABLET (UD) PO SCH (12:30)
[2024-01-04] MEDS: MINERAL OIL ENEMA 133 ML ENEMA RC ONE (19:08)
[2024-01-04] MEDS ORDERED: SENNOSIDES 8.8 MG/5 ML SYRUP PO SCH (22:00)
[2024-01-05 08:41] LABS: HEMATOCRIT 31.5 % (32.4-45.2); HEMOGLOBIN 10.9 GM/dL (10.7-15.3); MCH 31.1 pg (25.7-33.7); MCHC 34.6 g/dl (32.0-36.0); MEAN PLT VOLUME 8.4 fl (7.5-11.1); PLATELET COUNT 307 10^3/uL (134-434); RBC 3.51 M/mm3 (3.60-5.2); RDW 14.1 % (11.6-15.6); WHITE BLOOD COUNT 7.6 K/mm3 (4.0-10.0)
[2024-01-05 09:08] LABS: POTASSIUM 3.3 mmol/L (3.5-5.1)
[2024-01-05 09:20] LABS: ALBUMIN 2.8 g/dl (3.4-5.0); BLOOD UREA NITROGEN 9.5 mg/dL (7-18); MAGNESIUM 2.2 mg/dL (1.8-2.4)
[2024-01-05 09:21] LABS: BILIRUBIN,TOTAL 0.6 mg/dL (0.2-1); PHOSPHOROUS 2.4 mg/dL (2.5-4.9); TOT PROT 5.4 g/dl (6.4-8.2)
[2024-01-05 09:23] LABS: CREATININE 0.6 mg/dL (0.55-1.3)
[2024-01-05] MEDS: TAMSULOSIN HCL 0.4 MG CAP PO SCH (09:37)
[2024-01-05 09:39] VITALS: BP 143/88; PULSE 96; RESP 18; TEMP 97.9
[2024-01-05] MEDS: POTASSIUM CHLORIDE ORAL LIQUID 20 MEQ/15 ML PO ONE (12:27)
[2024-01-05] MEDS: NAPH,MB-DB/K PH,MBDB POWDER PACKET PO ONE (12:28)
== END 2024-01-05 15:03 | disposition home health service (06) | DRG 551 ==
LOC: JER 09:51 → JERBED 14:43 → J4W 19:16 → OBSVTOIN 12-29 14:15
PROVIDERS: ADMIT Internal Medicine; ATTEND Internal Medicine
PROC: 0FB13ZX Excision of Right Lobe Liver, Percutaneous Approach, Diagnostic (ICD-10-PCS; principal; 2024-01-03)
DX: S32.029A Unspecified fracture of second lumbar vertebra, initial encounter for closed fracture (principal); I26.99 Other pulmonary embolism without acute cor pulmonale; I24.89 Other forms of acute ischemic heart disease; N39.0 Urinary tract infection, site not specified; C25.9 Malignant neoplasm of pancreas, unspecified; C78.7 Secondary malignant neoplasm of liver and intrahepatic bile duct; S32.049A Unspecified fracture of fourth lumbar vertebra, initial encounter for closed fracture; E86.0 Dehydration; I27.20 Pulmonary hypertension, unspecified; I25.10 Atherosclerotic heart disease of native coronary artery without angina pectoris; I12.9 Hypertensive chronic kidney disease with stage 1 through stage 4 chronic kidney disease, or unspecified chronic kidney disease; N18.9 Chronic kidney disease, unspecified; G47.33 Obstructive sleep apnea (adult) (pediatric); W01.0XXA Fall on same level from slipping, tripping and stumbling without subsequent striking against object, initial encounter; Y92.000 Kitchen of unspecified non-institutional (private) residence as the place of occurrence of the external cause; Y93.89 Activity, other specified; Y99.8 Other external cause status; I36.1 Nonrheumatic tricuspid (valve) insufficiency; N28.1 Cyst of kidney, acquired; R91.1 Solitary pulmonary nodule; R33.8 Other retention of urine; K56.41 Fecal impaction; Z85.3 Personal history of malignant neoplasm of breast
CPT/HCPCS: 0241U-QW; 36415; 47000; 70450-TC; 71045-TC-FY; 71275-TC; 72125-TC; 72128-TC; 72131-TC; 72170-TC-FY; 73030-TC-RT-FY; 74177-TC; 77012-TC; 80048; 80053; 81003; 82378; 82550; 83036; 83735; 84100; 84132; 84484; 85025; 85027; 85610; 85730; 86301; 87086; 87186; 88307-TC; 88341-TC; 93005; 93010; 93306-TC; 93970-TC; 94660; 97116-GP; 97162-GP; 99285-25; G0378; J1644; Q9967

== ENCOUNTER 2024-01-31 06:00 | Day surgery (SDC) | payer OTHER, MEDICARE ==
[2024-01-31 09:28] VITALS: BMI 23.8
[2024-01-31 09:43] LABS: BASO % 0.7 % (0-2.0); EOS % 2.3 % (0-4.5); HEMATOCRIT 40.3 % (32.4-45.2); LYMPH % 7.5 % (8-40); MCH 30.2 pg (25.7-33.7); MCHC 32.3 g/dl (32.0-36.0); MEAN CELL VOLUME 93.4 fl (80-96); MEAN PLT VOLUME 8.8 fl (7.5-11.1); MONO % 6.1 % (3.8-10.2); NEUT % 83.4 % (42.8-82.8); PLATELET COUNT 371 10^3/uL (134-434); RBC 4.31 M/mm3 (3.60-5.2); RDW 15.4 % (11.6-15.6); WHITE BLOOD COUNT 11.4 K/mm3 (4.0-10.0)
[2024-01-31 09:48] LABS: INR 1.17 (0.83-1.09); PROTHROMBIN TIME (PATIENT) 13.5 SEC (9.7-13.0)
[2024-01-31 10:12] LABS: POTASSIUM 4.2 mmol/L (3.5-5.1)
[2024-01-31 10:14] LABS: ALBUMIN 3.2 g/dl (3.4-5.0); CALCIUM 10.2 mg/dL (8.5-10.1)
[2024-01-31 10:17] LABS: BILIRUBIN,DIRECT 0.4 mg/dL (0.0-0.2); CREATININE 0.6 mg/dL (0.55-1.3)
[2024-01-31 10:19] LABS: BILIRUBIN,TOTAL 0.9 mg/dL (0.2-1); TOT PROT 6.5 g/dl (6.4-8.2)
[2024-01-31] MEDS ORDERED: FENTANYL CITRATE/PF 50 MCG/ML VIAL ONE ×2 (12:39→12:57)
[2024-01-31] MEDS: FENTANYL CITRATE/PF 50 MCG/ML VIAL IVPUSH SCH (12:44)
[2024-01-31] MEDS ORDERED: LIDOCAINE 1%/EPI 1:100000 (20 ML MULTI DOSE VIAL) ONE (12:45)
[2024-01-31] MEDS ORDERED: PACLITAXEL PROTEIN BOUND IVPB ONE (13:30)
[2024-01-31] MEDS ORDERED: SODIUM CHLORIDE IVPB ONE (13:30)
[2024-01-31] MEDS ORDERED: SODIUM CHLORIDE 500 ML IV ONE (14:00)
[2024-01-31 14:18] VITALS: RESP 20
[2024-01-31] MEDS: PALONOSETRON HCL 0.25 MG/5 ML VIAL IVPUSH ONE (14:50)
[2024-01-31] MEDS: SODIUM CHLORIDE 250 ML IV ONE (14:55)
[2024-01-31] MEDS: DEXAMETHASONE SODIUM PHOSPHATE 10 MG in SODIUM CHLORIDE 50 ML IVPB ONE (14:56)
[2024-01-31 15:03] VITALS: BP 114/65; PULSE 102; TEMP 98.7
[2024-01-31] MEDS: SODIUM CHLORIDE IVPB ONE ×2 (15:20→15:58)
[2024-01-31] MEDS: PACLITAXEL PROTEIN BOUND IVPB ONE (15:20)
[2024-01-31] MEDS: GEMCITABINE HCL IVPB ONE (15:58)
[2024-01-31] MEDS: PORTA CATH FLUSH 10 ML IVPUSH PRN (16:55)
== END 2024-01-31 17:00 | disposition home or self-care (01) ==
LOC: JRADIR 06:00
PROVIDERS: ATTEND Internal Medicine Hematology & Oncology
PROC: 3E04305 Introduction of Other Antineoplastic into Central Vein, Percutaneous Approach (ICD-10-PCS; principal; 2024-01-31)
PROC: 0JH63WZ Insertion of Totally Implantable Vascular Access Device into Chest Subcutaneous Tissue and Fascia, Percutaneous Approach (ICD-10-PCS; 2024-01-31)
PROC: 02HV33Z Insertion of Infusion Device into Superior Vena Cava, Percutaneous Approach (ICD-10-PCS; 2024-01-31)
PROC: B518ZZA Fluoroscopy of Superior Vena Cava, Guidance (ICD-10-PCS; 2024-01-31)
DX: Z51.11 Encounter for antineoplastic chemotherapy (principal); C25.9 Malignant neoplasm of pancreas, unspecified
CPT/HCPCS: 36561; 96375; 96413; 96417; C1788; 36415; 75820-TC-FY; 80048; 80076; 85025; 85610; J2469; J9264

== ENCOUNTER 2024-02-07 10:05 | Day surgery (SDC) | payer OTHER, MEDICARE ==
[2024-02-07 10:19] LABS: BASO % 0.7 % (0-2.0); EOS % 2.9 % (0-4.5); HEMATOCRIT 38.2 % (32.4-45.2); HEMOGLOBIN 12.8 GM/dL (10.7-15.3); LYMPH % 11.2 % (8-40); MCH 30.8 pg (25.7-33.7); MCHC 33.5 g/dl (32.0-36.0); MEAN CELL VOLUME 91.9 fl (80-96); MEAN PLT VOLUME 8.2 fl (7.5-11.1); MONO % 6.3 % (3.8-10.2); NEUT % 78.9 % (42.8-82.8); PLATELET COUNT 218 10^3/uL (134-434); RBC 4.15 M/mm3 (3.60-5.2); RDW 15.1 % (11.6-15.6); WHITE BLOOD COUNT 6.8 K/mm3 (4.0-10.0)
[2024-02-07 10:39] LABS: POTASSIUM 3.3 mmol/L (3.5-5.1)
[2024-02-07 10:40] LABS: CALCIUM 9.2 mg/dL (8.5-10.1)
[2024-02-07 10:42] LABS: BLOOD UREA NITROGEN 18.2 mg/dL (7-18)
[2024-02-07 10:43] LABS: BILIRUBIN,DIRECT 0.5 mg/dL (0.0-0.2)
[2024-02-07 10:45] LABS: CREATININE 0.5 mg/dL (0.55-1.3); TOT PROT 5.9 g/dl (6.4-8.2)
[2024-02-07] MEDS: SODIUM CHLORIDE 250 ML IV ONE (12:34)
[2024-02-07] MEDS: PALONOSETRON HCL 0.25 MG/5 ML VIAL IVPUSH ONE (12:35)
[2024-02-07] MEDS: DEXAMETHASONE SODIUM PHOSPHATE 10 MG in SODIUM CHLORIDE 50 ML IVPB ONE (12:35)
[2024-02-07] MEDS: PACLITAXEL PROTEIN BOUND IVPB ONE (13:02)
[2024-02-07] MEDS: SODIUM CHLORIDE IVPB ONE ×2 (13:02→13:58)
[2024-02-07] MEDS: GEMCITABINE HCL IVPB ONE (13:58)
[2024-02-07] MEDS: PORTA CATH FLUSH 10 ML IVPUSH PRN (14:33)
[2024-02-07 17:33] VITALS: RESP 20; TEMP 97.9
[2024-02-07 18:14] VITALS: BP 103/56; PULSE 80
== END 2024-02-07 14:45 | disposition home or self-care (01) ==
LOC: JONCCHEMO 10:05 → J7W 10:06 → JONCCHEMO 14:45
PROVIDERS: ATTEND Internal Medicine Hematology & Oncology
DX: Z51.11 Encounter for antineoplastic chemotherapy (principal); C25.9 Malignant neoplasm of pancreas, unspecified
CPT/HCPCS: 36415; 80048; 80076; 85025; 96367; 96375; 96413; 96417; J2469; J9264

== ENCOUNTER 2024-02-14 12:35 | Inpatient (IN) | payer OTHER, MEDICARE ==
[2024-02-14 13:17] VITALS: BMI 21.9
[2024-02-14] MEDS ORDERED: ONDANSETRON 4 MG/2 ML VIAL ONE (14:16)
[2024-02-14] MEDS: SODIUM CHLORIDE 0.9% 500 ML INFUS.BAG IV ONE (14:38)
[2024-02-14] MEDS: ONDANSETRON 4 MG/2 ML VIAL IVPUSH ONE (14:38)
[2024-02-14 14:49] LABS: HEMOGLOBIN 12.9 GM/dL (10.7-15.3); RBC 4.19 M/mm3 (3.60-5.2); WHITE BLOOD COUNT 4.6 K/mm3 (4.0-10.0)
[2024-02-14 14:50] LABS: HEMATOCRIT 38.5 % (32.4-45.2); MCH 30.8 pg (25.7-33.7); MCHC 33.5 g/dl (32.0-36.0); MEAN CELL VOLUME 91.8 fl (80-96); MEAN PLT VOLUME 8.3 fl (7.5-11.1); PLATELET COUNT 109 10^3/uL (134-434)
[2024-02-14 14:55] LABS: INR 2.15 (0.83-1.09); PROTHROMBIN TIME (PATIENT) 23.8 SEC (9.7-13.0)
[2024-02-14 14:57] LABS: ACTIVATED PTT 33.2 SECONDS (25.2-36.5)
[2024-02-14 15:09] LABS: CHLORIDE 100 mmol/L (98-107); SODIUM 133 mmol/L (136-145)
[2024-02-14 15:11] LABS: ALBUMIN 2.9 g/dl (3.4-5.0); CALCIUM 9.7 mg/dL (8.5-10.1); CO2 20 mmol/L (21-32); MAGNESIUM 2.4 mg/dL (1.8-2.4)
[2024-02-14 15:12] LABS: GLUCOSE,RANDOM 132 mg/dL (74-106)
[2024-02-14 15:13] LABS: ANISOCYTOSIS 1+; MACROCYTOSIS 1+
[2024-02-14 15:14] LABS: CREATININE 0.7 mg/dL (0.55-1.3); PHOSPHOROUS 3.4 mg/dL (2.5-4.9); SGOT/AST 75 U/L (15-37); SGPT/ALT 38 U/L (13-61)
[2024-02-14 15:16] LABS: BILIRUBIN,TOTAL 1.4 mg/dL (0.2-1); TOT PROT 6.4 g/dl (6.4-8.2)
[2024-02-14 15:17] LABS: ALK PHOS 730 U/L (45-117); ANION GAP 13 mmol/L (4-13); POTASSIUM 6.2 mmol/L (3.5-5.1)
[2024-02-14] MEDS: DEXTROSE 5%-WATER - 1,000 ML IV SCH (16:24)
[2024-02-14] MEDS ORDERED: ACETAMINOPHEN 1000 MG/100 ML BAG IVPB PRN (21:59)
[2024-02-14] MEDS ORDERED: ONDANSETRON 4 MG/2 ML VIAL IVPUSH PRN (21:59)
[2024-02-14] MEDS ORDERED: APIXABAN 5 MG TABLET ONE (22:37)
[2024-02-14] MEDS: LACTATED RINGERS SOLUTION 1,000 ML/1,000 ML INFUS.BAG IV SCH (22:43)
[2024-02-14] MEDS: APIXABAN 5 MG TABLET PO SCH (22:43)
[2024-02-14 23:17] LABS: POTASSIUM 3.5 mmol/L (3.5-5.1)
[2024-02-14 23:18] LABS: CALCIUM 8.6 mg/dL (8.5-10.1)
[2024-02-14 23:19] LABS: BLOOD UREA NITROGEN 27.9 mg/dL (7-18)
[2024-02-14 23:22] LABS: CREATININE 0.5 mg/dL (0.55-1.3)
[2024-02-15] MEDS: LACTATED RINGERS SOLUTION 1,000 ML/1,000 ML INFUS.BAG IV SCH (01:37)
[2024-02-15 06:20] LABS: HEMATOCRIT 30.5 % (32.4-45.2); HEMOGLOBIN 10.3 GM/dL (10.7-15.3); MCH 30.9 pg (25.7-33.7); MCHC 33.8 g/dl (32.0-36.0); MEAN CELL VOLUME 91.2 fl (80-96); MEAN PLT VOLUME 8.1 fl (7.5-11.1); PLATELET COUNT 92 10^3/uL (134-434); RBC 3.34 M/mm3 (3.60-5.2); RDW 14.7 % (11.6-15.6)
[2024-02-15 06:35] LABS: POTASSIUM 3.3 mmol/L (3.5-5.1)
[2024-02-15 06:37] LABS: BLOOD UREA NITROGEN 24.3 mg/dL (7-18); CALCIUM 8.6 mg/dL (8.5-10.1)
[2024-02-15 06:38] LABS: ALBUMIN 2.7 g/dl (3.4-5.0); MAGNESIUM 1.9 mg/dL (1.8-2.4)
[2024-02-15 06:40] LABS: CREATININE 0.5 mg/dL (0.55-1.3); PHOSPHOROUS 2.3 mg/dL (2.5-4.9)
[2024-02-15 06:42] LABS: BILIRUBIN,TOTAL 0.9 mg/dL (0.2-1); TOT PROT 5.1 g/dl (6.4-8.2)
[2024-02-15 09:00] LABS: ANISOCYTOSIS 1+; MACROCYTOSIS 0
[2024-02-15] MEDS ORDERED: amLODIPine BESYLATE 5 MG TABLET (FP) PO SCH (10:00)
[2024-02-15] MEDS ORDERED: APIXABAN 5 MG TABLET ONE (10:39)
[2024-02-15] MEDS ORDERED: POTASSIUM CHLORIDE TABS 20 MEQ TABLET.ER (FP) PO ONE (10:40)
[2024-02-15] MEDS ORDERED: POTASSIUM CHLORIDE ORAL LIQUID 20 MEQ/15 ML ONE (11:45)
[2024-02-15] MEDS: POTASSIUM CHLORIDE ORAL LIQUID 20 MEQ/15 ML PO ONE (13:08)
[2024-02-15] MEDS: ZOLPIDEM TARTRATE 5 MG TABLET PO PRN (21:27)
[2024-02-15 22:20] LABS: INR 1.7 (0.83-1.09); PROTHROMBIN TIME (PATIENT) 18.9 SEC (9.7-13.0)
[2024-02-16] MEDS: POTASSIUM CHLORIDE TABS 20 MEQ TABLET.ER (FP) PO ONE ×2 (07:16→14:14)
[2024-02-16 08:37] LABS: HEMATOCRIT 32.3 % (32.4-45.2); HEMOGLOBIN 10.9 GM/dL (10.7-15.3); MCH 30.9 pg (25.7-33.7); MCHC 33.7 g/dl (32.0-36.0); MEAN CELL VOLUME 91.6 fl (80-96); PLATELET COUNT 121 10^3/uL (134-434); RBC 3.52 M/mm3 (3.60-5.2); RDW 14.6 % (11.6-15.6); WHITE BLOOD COUNT 3.8 K/mm3 (4.0-10.0)
[2024-02-16 08:58] LABS: POTASSIUM 3.4 mmol/L (3.5-5.1)
[2024-02-16 09:10] LABS: CALCIUM 8.8 mg/dL (8.5-10.1)
[2024-02-16 09:11] LABS: ALBUMIN 2.7 g/dl (3.4-5.0); BLOOD UREA NITROGEN 14.3 mg/dL (7-18)
[2024-02-16 09:13] LABS: CREATININE 0.4 mg/dL (0.55-1.3)
[2024-02-16] MEDS: DRONABINOL 2.5 MG CAPSULE PO SCH (09:13)
[2024-02-16 09:14] LABS: TOT PROT 5.1 g/dl (6.4-8.2)
[2024-02-16 09:47] LABS: ANISOCYTOSIS 1+; MACROCYTOSIS 1+
[2024-02-16] MEDS: PANTOPRAZOLE SODIUM 40 MG VIAL IVPUSH SCH (14:13)
[2024-02-16] MEDS: AMINO ACIDS 4.25%/D5W 1,000 ML IV SCH (14:13)
[2024-02-16] MEDS: DEXAMETHASONE SOD PHOSPHATE 4 MG/1 ML VIAL IVPUSH SCH (14:13)
[2024-02-16 14:26] LABS: PHOSPHOROUS 2.5 mg/dL (2.5-4.9)
[2024-02-16] MEDS: POTASSIUM CHLORIDE ORAL LIQUID 20 MEQ/15 ML PO ONE (17:56)
[2024-02-17 08:00] LABS: HEMATOCRIT 31.7 % (32.4-45.2); HEMOGLOBIN 10.7 GM/dL (10.7-15.3); MCH 30.7 pg (25.7-33.7); MCHC 33.6 g/dl (32.0-36.0); MEAN CELL VOLUME 91.4 fl (80-96); MEAN PLT VOLUME 8.9 fl (7.5-11.1); PLATELET COUNT 189 10^3/uL (134-434); RBC 3.47 M/mm3 (3.60-5.2); RDW 14.3 % (11.6-15.6); WHITE BLOOD COUNT 4.2 K/mm3 (4.0-10.0)
[2024-02-17 08:08] LABS: ALBUMIN 2.6 g/dl (3.4-5.0); CALCIUM 8.9 mg/dL (8.5-10.1); MAGNESIUM 1.9 mg/dL (1.8-2.4)
[2024-02-17 08:09] LABS: BLOOD UREA NITROGEN 21.5 mg/dL (7-18); PHOSPHOROUS 2.6 mg/dL (2.5-4.9)
[2024-02-17 08:10] LABS: CREATININE 0.5 mg/dL (0.55-1.3)
[2024-02-17 08:11] LABS: BILIRUBIN,TOTAL 0.8 mg/dL (0.2-1); TOT PROT 5.3 g/dl (6.4-8.2)
[2024-02-17] MEDS: THIAMINE 100 MG TABLET PO SCH (10:01)
[2024-02-17] MEDS ORDERED: PROCHLORPERAZINE MALEATE 5 MG TABLET PO SCH (12:00)
[2024-02-17] MEDS: PROCHLORPERAZINE INJECTION 10 MG/2 ML VIAL IVPB PRN (12:08)
[2024-02-18 08:11] LABS: HEMATOCRIT 30.1 % (32.4-45.2); HEMOGLOBIN 10.2 GM/dL (10.7-15.3); MCH 31.1 pg (25.7-33.7); MEAN CELL VOLUME 91.4 fl (80-96); MEAN PLT VOLUME 8.7 fl (7.5-11.1); PLATELET COUNT 289 10^3/uL (134-434); RBC 3.29 M/mm3 (3.60-5.2); RDW 14.7 % (11.6-15.6); WHITE BLOOD COUNT 4.9 K/mm3 (4.0-10.0)
[2024-02-18 08:25] LABS: POTASSIUM 3.5 mmol/L (3.5-5.1)
[2024-02-18 08:32] LABS: CREATININE 0.5 mg/dL (0.55-1.3)
[2024-02-18 08:34] LABS: ALBUMIN 2.6 g/dl (3.4-5.0); BILIRUBIN,TOTAL 0.7 mg/dL (0.2-1); BLOOD UREA NITROGEN 29.7 mg/dL (7-18); TOT PROT 5.1 g/dl (6.4-8.2)
[2024-02-18 08:37] LABS: CALCIUM 9.2 mg/dL (8.5-10.1); MAGNESIUM 1.9 mg/dL (1.8-2.4); PHOSPHOROUS 2.2 mg/dL (2.5-4.9)
[2024-02-18] MEDS: NAPH,MB-DB/K PH,MBDB POWDER PACKET PO ONE (13:30)
[2024-02-19] MEDS: NAPH,MB-DB/K PH,MBDB POWDER PACKET PO ONE (15:11)
[2024-02-19] MEDS ORDERED: PROCHLORPERAZINE INJECTION 10 MG/2 ML VIAL IVPB PRN (16:59)
[2024-02-19] MEDS ORDERED: ZOLPIDEM TARTRATE 5 MG TABLET PO PRN (16:59)
[2024-02-19] MEDS ORDERED: LYTES/YERBA SANTA 60 ML SPRAY MM PRN (18:25)
[2024-02-19] MEDS: ZOLPIDEM TARTRATE 5 MG TABLET PO PRN (21:10)
[2024-02-19] MEDS: APIXABAN 5 MG TABLET PO SCH (21:11)
[2024-02-19 21:32] VITALS: RESP 18
[2024-02-20] MEDS: THIAMINE 100 MG TABLET PO SCH (09:28)
[2024-02-20] MEDS: DRONABINOL 2.5 MG CAPSULE PO SCH (09:29)
[2024-02-20] MEDS: PANTOPRAZOLE 40 MG TABLET PO SCH (09:29)
[2024-02-20] MEDS ORDERED: PANTOPRAZOLE SODIUM 40 MG VIAL IVPUSH SCH (10:00)
[2024-02-21] MEDS: ACETAMINOPHEN 325 MG TABLET (FP) PO PRN (09:08)
[2024-02-21 20:48] VITALS: BP 113/60; PULSE 67; TEMP 98.5
[2024-02-21] MEDS ORDERED: ZOLPIDEM TARTRATE 5 MG TABLET PO SCH (21:00)
== END 2024-02-21 20:35 | DRG 641 ==
LOC: JER 12:35 → JERBED 15:56 → J4S 02-15 14:23 → J6S 02-19 16:24
PROVIDERS: ADMIT Internal Medicine; ATTEND Internal Medicine
DX: R62.7 Adult failure to thrive (principal); C25.9 Malignant neoplasm of pancreas, unspecified; C78.7 Secondary malignant neoplasm of liver and intrahepatic bile duct; C79.51 Secondary malignant neoplasm of bone; I24.89 Other forms of acute ischemic heart disease; N39.0 Urinary tract infection, site not specified; E44.0 Moderate protein-calorie malnutrition; Z68.1 Body mass index [BMI] 19.9 or less, adult; E87.1 Hypo-osmolality and hyponatremia; T45.1X5A Adverse effect of antineoplastic and immunosuppressive drugs, initial encounter; R11.2 Nausea with vomiting, unspecified; R53.1 Weakness; E87.6 Hypokalemia; K59.00 Constipation, unspecified; D72.819 Decreased white blood cell count, unspecified; R00.0 Tachycardia, unspecified; D69.6 Thrombocytopenia, unspecified; G47.33 Obstructive sleep apnea (adult) (pediatric); I25.10 Atherosclerotic heart disease of native coronary artery without angina pectoris; Z85.3 Personal history of malignant neoplasm of breast; Z71.89 Other specified counseling; Z86.711 Personal history of pulmonary embolism
CPT/HCPCS: 0241U-QW; 36415; 71045-TC-FY; 71275-TC; 74018-TC-FY; 80048; 80053; 82248; 83690; 83735; 84100; 84484; 85025; 85027; 85379; 85610; 85730; 87635; 93005; 93010; 97116-GP; 97161-GP; 99285-25

== ENCOUNTER 2024-03-27 11:17 | Day surgery (SDC) | payer OTHER, MEDICARE ==
[~2024-03-27 11:17] MED LIST: PEMBROLIZUMAB 200 MG in SODIUM CHLORIDE 100 ML IV ONE
[2024-03-27 11:36] LABS: BASO % 0.8 % (0-2.0); EOS % 1.3 % (0-4.5); LYMPH % 6.8 % (8-40); MCH 31.1 pg (25.7-33.7); MCHC 32.4 g/dl (32.0-36.0); MEAN CELL VOLUME 95.7 fl (80-96); MEAN PLT VOLUME 8.2 fl (7.5-11.1); MONO % 5.2 % (3.8-10.2); NEUT % 85.9 % (42.8-82.8); PLATELET COUNT 392 10^3/uL (134-434); RBC 3.86 M/mm3 (3.60-5.2); RDW 19.5 % (11.6-15.6); WHITE BLOOD COUNT 13.3 K/mm3 (4.0-10.0)
[2024-03-27 11:59] LABS: CHLORIDE 108 mmol/L (98-107); POTASSIUM 3.2 mmol/L (3.5-5.1); SODIUM 142 mmol/L (136-145)
[2024-03-27 12:01] LABS: CALCIUM 9.1 mg/dL (8.5-10.1)
[2024-03-27 12:02] LABS: ALBUMIN 2.6 g/dl (3.4-5.0); ANION GAP 14 mmol/L (4-13); BLOOD UREA NITROGEN 13.6 mg/dL (7-18); CO2 20 mmol/L (21-32); GLUCOSE,RANDOM 110 mg/dL (74-106)
[2024-03-27 12:05] LABS: BILIRUBIN,DIRECT 1.1 mg/dL (0.0-0.2); CREATININE 0.4 mg/dL (0.55-1.3); SGOT/AST 68 U/L (15-37); SGPT/ALT 64 U/L (13-61)
[2024-03-27 12:06] LABS: BILIRUBIN,TOTAL 1.7 mg/dL (0.2-1)
[2024-03-27 12:07] LABS: TOT PROT 5.6 g/dl (6.4-8.2)
[2024-03-27 12:08] LABS: N-TERMINAL BNP 1131.2 pg/ml (5-450)
[2024-03-27 12:09] LABS: AMYLASE 23 U/L (25-115)
[2024-03-27 12:25] LABS: ALK PHOS 1094 U/L (45-117)
[2024-03-27 13:37] VITALS: BP 161/81; PULSE 65; RESP 22; TEMP 97.8
[2024-03-27] MEDS ORDERED: PORTA CATH FLUSH 10 ML IVPUSH PRN (13:37)
== END 2024-03-27 13:00 | disposition home or self-care (01) ==
LOC: JONCCHEMO 11:17 → J7W 11:18 → JONCCHEMO 13:00
PROVIDERS: ATTEND Internal Medicine Hematology & Oncology
DX: Z51.11 Encounter for antineoplastic chemotherapy (principal); Z53.8 Procedure and treatment not carried out for other reasons; C25.1 Malignant neoplasm of body of pancreas; R79.89 Other specified abnormal findings of blood chemistry
CPT/HCPCS: 36415; 80048; 80076; 82150; 82533; 82550; 83690; 83880; 84439; 84443; 84484; 85025; 96413

== ENCOUNTER 2024-03-27 13:03 | Emergency (ER) | payer OTHER, MEDICARE ==
[2024-03-27 13:10] VITALS: BP 113/68; PULSE 104; RESP 18; TEMP 98; BMI 19.5
[2024-03-27] MEDS: ACETAMINOPHEN 500 MG TABLET (FP) PO ONE (15:36)
[2024-03-27] MEDS ORDERED: POTASSIUM CHLORIDE ORAL LIQUID 20 MEQ/15 ML ONE (16:20)
[2024-03-27] MEDS: POTASSIUM CHLORIDE ORAL LIQUID 20 MEQ/15 ML PO ONE (16:27)
== END 2024-03-27 16:27 | disposition home or self-care (01) ==
LOC: JER 13:03
DX: R79.89 Other specified abnormal findings of blood chemistry (principal)
CPT/HCPCS: 36415; 84484; 93005; 93010; 99284-25